=== PATIENT | female | born 1975 | race American Indian/Alaskan Native ===

== ENCOUNTER 2017-02-03 11:12 | Outpatient (CLI) | payer MEDICAID ==
--- NOTE | 2017-02-03 14:49 | Cat Scan Report ---
CT ABDOMEN WITH CONTRAST INDICATION: Localized swelling. COMPARISON: None similar. FINDINGS: Abdomen CT performed following oral contrast and intravenous administration of 100 cc of Omnipaque 300. LUNG BASES: Nonspecific distal esophageal wall prominence/thickening, not excluded for gastroesophageal reflux and/or hiatal hernia, amongst others. ABDOMEN: Midline ventral hernia noted with a transverse neck of 1.8 cm, containing fat and minimal mesenteric density/vessels and situated approximately 4.3 cm above the umbilicus. Liver, spleen, gallbladder, pancreas, adrenals, aorta, IVC, kidneys and opacified bowel within normal limits. Normal appendix partially imaged. Usual stool along nonopacified colon. Unremarkable bones. CONCLUSION: Fat-containing supraumbilical ventral hernia with few other incidental findings, as above. Please correlate. Thank you for the opportunity to participate in this patient's care.
== END 2017-02-03 11:13 | disposition home or self-care (01) ==
LOC: CT 11:12
PROVIDERS: ATTEND Surgery
DX: K43.9 Ventral hernia without obstruction or gangrene (principal); R22.2 Localized swelling, mass and lump, trunk
CPT/HCPCS: 74160; Q9967

== ENCOUNTER 2017-04-20 10:44 | Day surgery (SDC) | payer MEDICAID ==
[~2017-04-20 10:44] MED LIST: MARCAINE 0.5% INFILTRATI ONE; NACL 0.9% IR ONE
[2017-04-20] MEDS ORDERED: VERSED IV NR (11:00)
[2017-04-20] MEDS ORDERED: PEPCID PO NR (11:00)
[2017-04-20] MEDS ORDERED: NACL 0.9% 1000 ML 1,000 ML IV SCH (11:00)
[2017-04-20] MEDS ORDERED: ANCEF/STERILE WATER 2 GM/20 ML IV NR (12:00)
[2017-04-20] MEDS ORDERED: MARCAINE 0.5% 30 ML INFILTRATI ONE (12:19)
--- NOTE | 2017-04-20 12:29 | Anesthesia Day of Surgery ---
Anesthesia Day of Surgery - Day of Surgery Patient Examined: Yes Patient H&P Reviewed: Yes Patient is NPO: Yes
--- NOTE | 2017-04-20 12:29 | Anesthesia Consultation ---
Anesthesia Consult and Med Hx Date of service: 04/20/17 - Airway Anesthetic Teeth Evaluation: Good ROM Head & Neck: Adequate Mental/Hyoid Distance: Adequate Mallampati Class: Class II Intubation Access Assessment: Good - Pulmonary Exam CTA: Yes - Cardiac Exam Cardiac Exam: No Murmur - Pre-Operative Health Status ASA Pre-Surgery Classification: ASA2 Proposed Anesthetic Plan: General - Central Nervous System Hx Back Pain: Yes Hx Psychiatric Problems: No - Other Systems Hx Alcohol Use: Yes (OCCAS) Hx Substance Use: No Hx Cancer: No
[2017-04-20 12:37] LABS: Basophils % (Auto) 0.6 % (0.0-1.8); Eosinophils # (Auto) 0.1 K/mm3 (0.0-0.4); Eosinophils % (Auto) 1.9 % (0.0-4.3); Hematocrit 38.7 % (30.3-42.9); Hemoglobin 13.1 gm/dl (10.1-14.3); Lymphocytes # (Auto) 1.2 K/mm3 (1.2-5.4); Lymphocytes % (Auto) 39.7 % (13.4-35.0); Mean Corpuscular HGB Conc 34 % (30-34); Mean Corpuscular Hemoglobin 31 pg (28-32); Mean Corpuscular Volume 93 fl (79-97); Monocytes # (Auto) 0.2 K/mm3 (0.0-0.8); Monocytes % (Auto) 7.4 % (0.0-7.3); Platelet Count 188 K/mm3 (140-440); Red Blood Count 4.16 M/mm3 (3.65-5.03); Red Cell Distribution Width 12.4 % (13.2-15.2)
[2017-04-20 12:49] LABS: BUN/Creatinine Ratio 16; Blood Urea Nitrogen 13 mg/dL (7-17); Hemolysis Index 21
[2017-04-20] MEDS ORDERED: ZEMURON IV ONE (12:51)
[2017-04-20] MEDS ORDERED: DIPRIVAN 10 MG/ML IV ONE (12:51)
[2017-04-20] MEDS ORDERED: XYLOCAINE MPF 2% ONE (12:51)
[2017-04-20] MEDS ORDERED: DILAUDID ONE (12:52)
[2017-04-20] MEDS ORDERED: DECADRON ONE (13:31)
[2017-04-20] MEDS ORDERED: ROBINUL ONE ×2 (13:31→13:42)
[2017-04-20] MEDS ORDERED: TORADOL ONE (13:31)
[2017-04-20] MEDS ORDERED: NEOSTIGMINE ONE (13:31)
[2017-04-20] MEDS ORDERED: ZOFRAN ONE (13:31)
[2017-04-20] MEDS ORDERED: NEO SYNEPHRINE/NS Syringe(OR USE) IV ONE (13:51)
[2017-04-20] MEDS ORDERED: NORCO 5/325 PO PRN (14:30)
--- NOTE | 2017-04-20 15:03 | Operative Report ---
PREOPERATIVE DIAGNOSIS: Epigastric hernia. POSTOPERATIVE DIAGNOSIS: Epigastric hernia. SURGERY: Laparoscopic repair of epigastric hernia. ANESTHESIA: General. BLOOD LOSS: Minimal. FINDINGS: The patient had a defect in the abdominal wall in the midline superiorly a little bit off to the right side, to me it measured about 2.5 x 2.5 cm. I did use a Ventralex graft on that defect size large. This examination did not reveal anything specific. She has some adhesions there; these were lysed. I had to transect a band that goes into the mouth of the hernial defect. ESTIMATED BLOOD LOSS: Minimal. DESCRIPTION OF PROCEDURE: With the patient in supine position, prepped and draped in usual fashion, I made a small incision in the right mid upper abdomen with the Veress needle. I was able to do CO2 of pressure 15 for which #5 trocar was inserted and then another trocar was inserted #5 in the mid right lower quadrant. All this was done after infiltration with local anesthetic. I evaluated the situation. That band was transected using the EndoShears with ____cautery. I took picture of that defect and then a large Ventralex graft was inserted to the dome of that area into the defect itself. I could see it from within very nicely and this was tacked to the fat fascia using yumiko in the usual fashion all around. I put it in 2 rows with about 0.5 to 1 cm in between. I was very satisfied and had good hemostasis at the ____ and then the 2 ends were pulled out as we do usually and transected, flushed with the subcutaneous tissue. I was well satisfied there was good hemostasis. Then, the trocars were removed under vision of the camera. At that point, the 2 wounds were closed with 4-0 Vicryl for subcutaneous tissue, and the third one the large one with the same after applying a 2 x 2 and Tegaderm. Abdominal binder was then applied. We had good hemostasis. The patient was transferred to the recovery in good condition. JOB# [id number] CALLY/YADIRA
--- NOTE | 2017-04-20 15:31 | Post Anesthesia Evaluation ---
- Post Anesthesia Evaluation Patient Participated: Yes Airway Patent: Yes Stable Respiratory Function: Yes Nausea/Vomiting: No Temp > 96.8F: Yes Pain Manageable: Yes Adequeate Hydration: Yes Anesthesia Complications: No Block Receding Appropriately: Not Applicable Patient on Ventilator: No
[2017-04-20 18:23] VITALS: BP 111/72
--- NOTE | 2017-04-20 21:20 | Discharge Summary ---
HOSPITAL COURSE: This patient was seen in my office on 2 occasions in the last 6 weeks because of pain in the mid epigastric area. She was told that she may have a hernia there and this was seen on the x-ray. She never had any admissions for 1 section many years back. She is not allergic to any medicines. She does not take any medications. PHYSICAL EXAMINATION: GENERAL: Thin, slim, black female. She is very sociable, in no distress. HEAD AND NECK AND CHEST: Clear. HEART: Sounds normal. BREASTS: Symmetrical, no evidence of any specific masses. ABDOMEN: Protuberant, soft. There is soft tissue or a hernia with a defect in the mid epigastrium. The defect is about 2 x 2 cm. At this point, I believe she needs surgical intervention, so she underwent a laparoscopic repair of epigastric hernia with application of Ventralex graft large. She was then transferred to the recovery room. She did very well, was discharged home to be on [address] 5/325. To see me in my office about 10 days or 15 days, to keep an abdominal binder. No driving. To call me if she has any problem otherwise. JOB# [id number] CALLY/YADIRA
== END 2017-04-20 17:49 | disposition home or self-care (01) ==
LOC: OR 10:44
PROVIDERS: ATTEND Surgery
DX: K43.9 Ventral hernia without obstruction or gangrene (principal); Z98.890 Other specified postprocedural states
CPT/HCPCS: 36415; 49652; 80048; 81025; 85025; C1781; J0690; J1100; J1170; J1885; J2250; J2370; J2405; J2704; J2710; J7030

== ENCOUNTER 2018-05-22 11:01 | Outpatient (CLI) | payer MEDICAID ==
--- NOTE | 2018-05-22 13:51 | Magnetic Resonance Report ---
MR LOWER EXTREMITY JOINT RIGHT WITHOUT CONTRAST HISTORY: Pain in left knee. TECHNIQUE: Multisequence, multiplanar MRI without contrast was performed through the right knee. COMPARISON: Right knee films dated 04/04/18. FINDINGS: A small to medium joint effusion is identified which extends to the suprapatellar bursa. Mild retropatellar spurring and mild joint space narrowing in the medial compartment are again noted. Multiple intra-articular cartilage abnormalities are identified. There is complete or near complete cartilage loss in the medial facet of the patella. The cartilage involving the lateral patellar facet appears normal thickness however there appears to be a small cartilage fissure medially which is best demonstrated on axial proton density fat sat image 26. There is also complete or near complete loss of cartilage involving the femoral and tibial surfaces of the medial compartment. There is mild subchondral bone marrow edema in the medial femoral condyle and medial patella consistent with contusion. There is relative sparing of the lateral compartment. The medial and lateral menisci are intact. No degeneration or tear is identified. The ACL, PCL, MCL, LCL complex and extensor complexes are intact and unremarkable. IMPRESSION: Moderate bicompartmental osteoarthritic changes. Large cartilage defects involving the medial retropatellar cartilage and medial compartment as described. Joint effusion.
== END 2018-05-22 11:02 | disposition home or self-care (01) ==
LOC: MRI 11:01
PROVIDERS: ATTEND Orthopaedic Surgery
DX: M17.11 Unilateral primary osteoarthritis, right knee (principal); M25.461 Effusion, right knee
CPT/HCPCS: 73721